=== PATIENT | male | born 1960 | race Caucasian/White ===

== ENCOUNTER 2017-10-11 08:23 | Day surgery (SDC) | payer OTHER ==
[2017-10-07 13:35] VITALS: BMI 28.5
[~2017-10-11 08:23] MED LIST: LACTATED RINGERS 1,000 ML IV SCH
[2017-10-11 08:36] VITALS: TEMP 98
[2017-10-11] MEDS ORDERED: LACTATED RINGERS 1,000 ML IV ONE (08:38)
[2017-10-11] MEDS ORDERED: LIDOCAINE 1% 20 ML VIAL (10MG/ML) FOR IV START INTRADERMA ONE (08:38)
[2017-10-11] MEDS ORDERED: LIDOCAINE 1% INJ 10MG/ML (20 ML MDV) ONE (09:31)
[2017-10-11] MEDS ORDERED: PROPOFOL 10 MG/ML 20 ML VIAL IV ONE (09:31)
--- NOTE | 2017-10-11 09:45 | P.GSHP ---
History of Present Illness H&P Date: 10/11/17 Chief Complaint: Screening colonoscopy This a 57-year-old male referred from [facility]. Patient presents today for colonoscopy. He's never had a colonoscopy before. Past Medical History Past Medical History: No Reported History History of Any Multi-Drug Resistant Organisms: None Reported Past Surgical History: Appendectomy, Orthopedic Surgery Additional Past Surgical History / Comment(s): bayron shoulder surgery, arthroscopy left knee, rt carpal tunnel, Past Anesthesia/Blood Transfusion Reactions: No Reported Reaction Smoking Status: Former smoker - Past Family History Mother Family Medical History: No Reported History Medications and Allergies Home Medications Medication Instructions Recorded Confirmed Type Aspirin [Adult Low Dose Aspirin EC] 81 mg PO DAILY 10/07/17 10/07/17 History Allergies Allergy/AdvReac Type Severity Reaction Status Date / Time No Known Allergies Allergy Verified 10/07/17 13:28 Surgical - Exam Vital Signs Temp Pulse Resp BP Pulse Ox 98.0 F 84 18 184/81 99 10/11/17 08:35 10/11/17 08:35 10/11/17 08:35 10/11/17 08:35 10/11/17 08:35 - General well developed, no distress - Eyes PERRL - ENT normal pinna - Neck no masses - Respiratory normal expansion - Cardiovascular Rhythm: regular - Abdomen Abdomen: soft, non tender Assessment and Plan Assessment: We'll perform colonoscopy.
--- NOTE | 2017-10-11 10:00 | P.OP ---
Date of Procedure: 10/11/17 Preoperative Diagnosis: Screening colonoscopy Postoperative Diagnosis: Diverticulosis Procedure(s) Performed: Colonoscopy Anesthesia: MAC Surgeon: Bebeto Cunha Pathology: none sent Condition: stable Disposition: PACU Description of Procedure: The patient's placed on the endoscopy table in the lateral position. He received IV sedation. Digital rectal exam was performed which revealed no abnormalities. The flexible colonoscope was then placed patient anus passed throughout the entire colon. The ileocecal valve was visualized. There was a large amount liquid stool in the right colon which limited the view of the right colon. There were no polyps or tumors seen. The scope was withdrawn the remainder of the transverse colon appeared normal. In the descending; was mild diverticular changes. Scope was then brought back the rectum and this appeared normal. Scope was withdrawn for patient.
[2017-10-11 10:04] VITALS: RESP 16
[2017-10-11 10:17] VITALS: BP 176/97; PULSE 76
== END 2017-10-11 10:41 | disposition home or self-care (01) ==
LOC: ORWHC2ENDO 08:23
PROVIDERS: ATTEND Surgery
DX: Z12.11 Encounter for screening for malignant neoplasm of colon (principal); K57.30 Diverticulosis of large intestine without perforation or abscess without bleeding; Z87.891 Personal history of nicotine dependence; Z79.82 Long term (current) use of aspirin
CPT/HCPCS: J2001; J2704; G0121